=== PATIENT | female | born 1985 | race Caucasian/White ===

== ENCOUNTER 2017-07-15 19:25 | Emergency (ER) | payer OTHER ==
[~2017-07-15] VITALS: Ht 167.6 cm; Wt 81.7 kg
[~2017-07-15 19:25] MED LIST: BENADRYL25 MG PO; DOXYCYCLINE 10100 MG PO; HYDROCODON-ACE1 EAC7 PO; K-DUR 20 MEQ T20 MEQ PO; MEDROLDOSEPACK PO; PEPCID20 MG PO; PROTONIX40 MG PO; TRAMADOL 50 MG50 MG PO; VENTOLIN HFA 1818 GM INH; ZOFRAN4 MG PO
[2017-07-15 20:35] LABS: INFLUENZA A ANTIGEN None Detected (None Detect); INFLUENZA B ANTIGEN None Detected (None Detect)
[2017-07-15] MEDS ORDERED: GUAIFENESIN-CO118 ML PO (21:00)
[2017-07-15] MEDS ORDERED: AMOXICILLIN 50500 MG PO (21:00)
[2017-07-15] MEDS ORDERED: PREDNISONE 20 M20 MG PO (21:00)
[2017-07-15 21:14] VITALS: BP 110/53
== END 2017-07-15 21:17 | disposition home or self-care (01) ==
LOC: M.ERS 19:25
PROVIDERS: Physician Assistant
DX: R09.81 Nasal congestion (principal); R05 Cough; F17.210 Nicotine dependence, cigarettes, uncomplicated; Z88.1 Allergy status to other antibiotic agents; Z88.8 Allergy status to other drugs, medicaments and biological substances

== ENCOUNTER 2017-11-02 12:08 | Emergency (ER) | payer OTHER ==
[~2017-11-02] VITALS: Ht 167.6 cm; Wt 81.7 kg
[~2017-11-02 12:08] MED LIST changes: +AMOXICILLIN 50500 MG PO; +GUAIFENESIN-CO118 ML PO; +PREDNISONE 20 M20 MG PO
[2017-11-02 12:15] VITALS: BP 108/72
[2017-11-02] MEDS ORDERED: TUSSIN DM 400-1 EACH PO (12:19)
[2017-11-02] MEDS ORDERED: AMOXICILLIN 50500 MG PO (12:22)
[2017-11-02] MEDS ORDERED: PROAIR HFA8.5 GM INH (12:22)
[2017-11-02] MEDS ORDERED: PREDNISONE 20 M20 MG PO (12:22)
== END 2017-11-02 12:39 | disposition home or self-care (01) ==
LOC: M.ERS 12:08
DX: J20.9 Acute bronchitis, unspecified (principal); F17.210 Nicotine dependence, cigarettes, uncomplicated; Z88.1 Allergy status to other antibiotic agents; Z88.8 Allergy status to other drugs, medicaments and biological substances

== ENCOUNTER 2018-11-03 16:21 | Emergency (ER) | payer OTHER ==
[~2018-11-03] VITALS: Ht 167.6 cm; Wt 71.7 kg
[~2018-11-03 16:21] MED LIST changes: +PROAIR HFA8.5 GM INH; +TUSSIN DM 400-1 EACH PO
[2018-11-03] MEDS ORDERED: AUGMENTIN 875-1 EACH PO (16:34)
[2018-11-03] MEDS ORDERED: EFFEXOR 5050 MG/1 T1 PO (16:34)
[2018-11-03] MEDS ORDERED: FLONASE 0.05%50 MCG NASAL (16:35)
[2018-11-03 17:50] LABS: ABSOLUTE BASOPHILS 0.1 thou/uL (0.0-0.2); ABSOLUTE EOSINOPHILS 0.1 thou/uL (0.0-0.7); ABSOLUTE LYMPHOCYTES 2.6 thou/uL (0.8-5.3); ABSOLUTE MONOCYTES 0.3 thou/uL (0.0-1.2); ABSOLUTE NEUTROPHILS 5.2 thou/uL (1.6-8.1); BASOPHILS 0.7 %; EOSINOPHILS 1.8 %; HEMATOCRIT 35.7 % (37.0-47.0); HEMOGLOBIN 12.4 gm/dL (12.0-15.0); MCH 31.7 pg (26.0-34.0); MCHC 34.7 g/dL (28.0-37.0); MCV 91.2 fL (80.0-100.0); MONOCYTES 4.1 %; MPV 7.1 fl. (7.2-11.1); NUCLEATED RBCS 0 /100WBC; PLATELET COUNT* 337 thou/uL (150-400); POLYS 62.4 %; RBC 3.92 mil/uL (4.20-5.00); RDW-CV 13.8 % (10.5-14.5); WBC 8.4 thou/uL (4.0-11.0)
[2018-11-03 18:00] LABS: CALCIUM 9.2 mg/dL (8.5-10.1); CREATININE 0.7 mg/dL (0.6-1.3); POTASSIUM 4.3 mmol/L (3.5-5.1)
[2018-11-03 18:04] LABS: ALBUMIN 4.4 g/dL (3.4-5.0); TOTAL BILIRUBIN 0.3 mg/dL (<0.1-1.0); TOTAL PROTEIN 7.4 g/dL (6.4-8.2)
[2018-11-03] MEDS ORDERED: PREDNISONE 20 M20 MG PO (18:27)
[2018-11-03] MEDS ORDERED: NORCO 5-325 TA1 EAC1 PO (18:27)
[2018-11-03] MEDS ORDERED: CLEOCIN HCL150 MG PO (18:34)
[2018-11-03 18:54] VITALS: BP 115/72
== END 2018-11-03 18:55 | disposition home or self-care (01) ==
LOC: M.ERS 16:21
PROVIDERS: Physician Assistant
DX: J01.00 Acute maxillary sinusitis, unspecified (principal); F17.210 Nicotine dependence, cigarettes, uncomplicated; Z98.51 Tubal ligation status; Z88.1 Allergy status to other antibiotic agents; Z88.8 Allergy status to other drugs, medicaments and biological substances